=== PATIENT | male | born 1955 ===

== ENCOUNTER 2024-07-10 08:51 | Day surgery (SDC) | payer OTHER ==
[2024-07-10 08:59] LABS: Absolute Basophils 0.1 K/uL (0-0.5); Absolute Eosinophils 0.3 K/uL (0-0.5); Absolute Lymphocytes (CBC) 1.3 K/uL (0.7-4.9); Absolute Monocytes 0.8 K/uL (0.1-1.3); Absolute Neutrophil 7.5 K/uL (1.8-8.0); Basophils % 0.8 % (0-1.3); Eosinophils % 2.5 % (0-4.4); Hematocrit 47.9 % (39.6-49.0); Hemoglobin 16.5 g/dL (13.6-17.9); Lymphocytes % 13.3 % (15.3-44.8); MCH 34.8 pg (27.0-35.0); MCHC 34.5 g/dL (32.0-36.0); MCV 100.8 fL (80-100); MPV 7.6 fL (7.6-11.3); Monocytes % 8.1 % (3.3-12.3); Neutrophils % 75.3 % (41.7-73.7); Nucleated Red Blood Cells % 0.2 % (0-0); Platelets 447 thou/uL (152-406); RBC Red Blood Cell Count 4.75 M/uL (4.33-5.43); Red Cell Distribution Width 12.8 % (12.1-15.2)
[2024-07-10 09:06] LABS: PT Prothrombin Time 10.9 SECONDS (9.4-12.5); PTT, Activated Partial Thromb 32.5 SECONDS (24.3-36.9); Protime INR 0.97
[2024-07-10 09:14] LABS: Anion Gap 10.7 mEq/L (5.0-15.0); Potassium 4.7 mEq/L (3.5-5.1)
[2024-07-10] MEDS: Ringers Lactate 1,000 ML IV ONE (09:15)
[2024-07-10] MEDS ORDERED: LIDOCAINE 1% MPF 5 ML VIAL ONE (10:27)
[2024-07-10] MEDS ORDERED: dexAMETHasone 10 MG/ML VIAL ONE (10:27)
[2024-07-10] MEDS ORDERED: MIDAZOLAM HCL 2 MG/2 ML INJ ONE (10:28)
[2024-07-10] MEDS ORDERED: EPINEPHRINE 1 MG/ML VIAL ONE (10:28)
[2024-07-10] MEDS ORDERED: FENTANYL CITR 100 MCG/2 ML ONE (10:28)
[2024-07-10] MEDS ORDERED: BUPIVACAINE 0.25% PF 30 ML VIAL ONE (10:28)
[2024-07-10] MEDS ORDERED: BUPIVACAINE 0.5% PF 10 ML VIAL ONE (10:37)
[2024-07-10] MEDS ORDERED: ONDANSETRON 4 MG/2 ML VIAL ONE (11:49)
[2024-07-10] MEDS ORDERED: propofoL 200 MG/20 ML VIAL IV ONE (11:50)
[2024-07-10] MEDS ORDERED: LIDOCAINE 2% MPF 5 ML VIAL ONE (11:50)
[2024-07-10] MEDS ORDERED: EPHEDRINE SULF 50 MG/ML VIAL ONE (11:58)
[2024-07-10] MEDS: CEFAZOLIN SODIUM 1 GM/VIAL ONE (12:00)
[2024-07-10] MEDS: HYDROMORPHONE HCL 1 MG/ML INJ ONE (13:59)
--- NOTE | 2024-07-10 14:55 | RAD REPORT ---
Exam:Ankle Left 2 View HISTORY: left ankle pain FINDINGS: Fluoroscopy time 58 seconds. 4 intraoperative fluoroscopic spot images obtained. Screws and plates affix lateral and medial malleolar fractures in good alignment Surgery performed by Dr. Rush
[2024-07-10] MEDS ORDERED: HYDROCODONE/APAP 10/325 TAB PO ONE (15:06)
[2024-07-10] MEDS: HYDROCODONE/APAP 10/325 TAB ONE (15:06)
[2024-07-10 16:10] VITALS: BP 134/72; TEMP 97.1; O2SAT 95
--- NOTE | 2024-07-10 17:54 | OP ---
Date of Procedure: 07/10/2024 Surgeon: Erlin Rush MD Preoperative Diagnosis: Left ankle bimalleolar ankle fracture. Postoperative Diagnosis: Left ankle bimalleolar ankle fracture. Procedure: Open reduction and internal fixation of left bimalleolar ankle fracture. Estimated Blood Loss: 10 cc. Complications: There were no complications. Specimens: No pathology specimens sent. Indications For Operation: Mr. Corrales is a 69-year-old gentleman who unfortunately smokes who about 2 weeks ago sustained an injury to his left ankle. He was seen and examined in my office. He had inderjit n on the lateral aspect of his ankle and his x-rays revealed a displaced lateral malleolus fracture w ith slight widening of the medial clear space. At that time, his skin definitely did not wrinkle. I t was highly swollen, he had it down nearly continuously and arrived in a boot on. Risks, benefits, and alternatives of different methods of treating this were discussed with him. He said he would judith p it highly elevated, and then he came back for a skin check. Because the quality of his preop x-ray s was not ideal, an additional x-ray was taken of his ankle, which does reveal a very small fragment medial malleolus fracture. His skin did wrinkle at that time but it also wrinkles in the preop area. Risks, benefits, and alternatives of this procedure had been discussed with him again. He states h e understands things as presented and knows not to walk on it and hopefully can discontinue smoking. Description Of Procedure: The patient was taken to the recovery room and placed in supine position. General anesthesia was easily obtained by Anesthesia staff. He previously had a block. Following t his, a well-padded tourniquet was placed on superior left thigh and left lower extremity was then pre pped and draped in the usual sterile fashion for the procedure. Attention was first turned medially. There was some consideration of trying to treat this percutaneously as the skin may be in question because of the smoking and other issues. However, it was felt that this small fragment could not be controlled adequately with percutaneous fixation. Decision was made to move forward with open reduct ion. This was then done with a fairly long relaxed incision to preserve the skin as much as possible . The fracture site was seen and cleared. The distal fragment was then anteriorly released using a towel clip. It appeared that there was only enough space for 1 screw and the 4.0 cannulated screw se t was then used to place 1 cannulated screw across the fracture site compressing it and it appeared t o hold well and looked good on x-ray. After this, the wound was gently irrigated and closed using 2- 0 Vicryl sutures and attention was then turned to the lateral malleolus. A standard lateral incision taken down carefully through skin and soft tissue. Meticulous hemostasis being maintained using Bov ie electrocautery. This led down to the fracture site. The fracture site was then cleared. It shou ld be noted that the bone especially in the distal fragment was extremely soft. After the fracture s ite had been cleaned, the use of a reduction clamp basically just dig in to the distal fragment, not really able to maintain reduction. Therefore, the decision was made to pursue a bridge plating techn ique and the plate was then applied to the distal fragment using a screw which apparently did have a good bite. The clamp was then able to be used to provide length and reduction as the proximal screws are placed. The first proximal screw unfortunately did not have much of a bite and broke out. Ferrara zack, the other 2 proximal screws appeared to hold very well. Because of the very poor nature of the bone, the plate was used more or less as a buttress and decision was made to place a screw very simil ar to technique for syndesmosis to bulk up the construct and this was placed without difficulty. It did appear now to have a very stable construct. The wound was copiously irrigated and the skin was c losed using 2-0 Vicryl sutures. This was followed by placement of anjum both medial and lateral. The patient was then placed in extremely well-padded posterior splint with the U, awakened, and taken to recovery room in good condition. /JEN Voice ID: [id number] Report ID: [id number]
--- NOTE | 2024-07-11 12:19 | EKG ---
Test Date: 2024-07-10 Test Time: 08:39:38 Shank Paperer: JAMES MEASUREMENT RESULTS: Intervals: Rate: 108 [place]: 146 QRSD: 78 QT: 330 QTc: 442 [place]: P: 74 [place]: 146 QRS: 92 T: 67 INTERPRETIVE STATEMENTS: Sinus tachycardia Rightward axis Cannot rule out Anterior infarct, age undetermined Abnormal ECG No previous ECG available for comparison Electronically Signed On 07-11-24 12:15:31 CDT by Tushar Rodrigues
== END 2024-07-10 15:49 | disposition home or self-care (01) ==
LOC: OR 08:51
PROVIDERS: ATTEND Orthopaedic Surgery
PROC: 0QSH04Z Reposition Left Tibia with Internal Fixation Device, Open Approach (ICD-10-PCS; 2024-07-10)
PROC: 0QSK04Z Reposition Left Fibula with Internal Fixation Device, Open Approach (ICD-10-PCS; principal; 2024-07-10 11:30)
DX: S82.842A Displaced bimalleolar fracture of left lower leg, initial encounter for closed fracture (principal); M25.572 Pain in left ankle and joints of left foot
CPT/HCPCS: 93005; 85025; 80048; 36415; 85610; 85730; 73600; 27814; J2704; J2001 ×2; J2250; J3010; J1100; J0171; J1170; J2405; J7120; J0690